=== PATIENT | female | born 1960 | race Two or more races ===

== ENCOUNTER 2020-07-03 21:04 | Emergency (ER) | payer MEDICAID ==
[~2020-07-03] VITALS: Ht 144.8 cm; Wt 61.0 kg
[2020-07-03 22:19] LABS: CLARITY URINE CLOUDY (CLEAR); COLOR URINE YELLOW (YELLOW); KETONES URINE TRACE (NEGATIVE); LEUKOCYTE ESTERASE URINE NEGATIVE (NEGATIVE); NITRITE URINE NEGATIVE (NEGATIVE); OCCULT BLOOD URINE NEGATIVE (NEGATIVE); PROTEIN URINE NEGATIVE (NEGATIVE); SPECIFIC GRAVITY URINE 1.026 (1.005-1.030); UROBILINOGEN URINE 0.2 E.U./dL (0.2-1.0)
[2020-07-03] MEDS ORDERED: LEVO250T58 MT ×2 (23:54→23:56)
[2020-07-03] MEDS ORDERED: ONDA4TAB11 PO (23:58)
[2020-07-04 00:19] VITALS: BP 144/65
== END 2020-07-04 00:22 | disposition home or self-care (01) ==
LOC: ER 21:04
DX: N39.0 Urinary tract infection, site not specified (principal); I10 Essential (primary) hypertension; E78.00 Pure hypercholesterolemia, unspecified; E11.9 Type 2 diabetes mellitus without complications
CPT/HCPCS: 81003; 93005; 99284